=== PATIENT | female | born 1995 | race Caucasian/White ===

== ENCOUNTER 2017-03-01 12:44 | Emergency (ER) | payer MEDICAID ==
[~2017-03-01] VITALS: Ht 154.9 cm; Wt 81.6 kg
[2017-03-01 12:51] VITALS: BP 116/76
[2017-03-01] MEDS ORDERED: ALBUTEROL SULFATE/IPRATROPIU 3 ML SOL IH ONE (13:15)
[2017-03-01] MEDS ORDERED: predniSONE 20 MG TAB PO ONE (13:15)
[2017-03-01] MEDS ORDERED: ALBUTEROL 0.083% 2.5 MG/3 ML NEBU INH ONE (13:15)
--- NOTE | 2017-03-01 13:22 | NUR ---
21/F BIB FAMILY C/O SORE THROAT, RUNNY NOSE & COUGH X 2 DAY. CHEST HURT WHEN SHE COUGH. DENIES N/V/D; SKIN IS PINK/WARM/DRY; AAOX4 WITH EVEN AND STEADY GAIT; LUNGS WHEEZING BL; PATIENT STATES PAIN OF 8/10 AT THIS TIME; PATIENT POSITIONED FOR COMFORT; HOB ELEVATED; BEDRAILS UP X2; BED DOWN. ER MD MADE AWARE OF PT STATUS.
--- NOTE | 2017-03-01 13:26 | NUR ---
RT AT BEDSIDE FOR BREATHING TREATMENT.
--- NOTE | 2017-03-01 14:00 | NUR ---
Patient discharged with v/s stable. Written and verbal after care instructions given and explained. Patient alert, oriented and verbalized understanding of instructions. Ambulatory with steady gait. All questions addressed prior to discharge. ID band removed. Patient advised to follow up with PMD. Rx of VENTOLIN HFA& PREDNISONE given. Patient educated on indication of medication including possible reaction and side effects. Opportunity to ask questions provided and answered.
[2017-03-01 14:05] VITALS: BP 119/78
== END 2017-03-01 14:00 | disposition home or self-care (01) ==
LOC: MED 12:44
DX: J45.909 Unspecified asthma, uncomplicated (principal)
CPT/HCPCS: 94640; 94760; 99283; J7512; J7613; J7620

== ENCOUNTER 2017-03-11 16:39 | Emergency (ER) | payer MEDICAID ==
[~2017-03-11] VITALS: Ht 157.5 cm; Wt 87.2 kg
[2017-03-11 17:38] VITALS: BP 129/76
[2017-03-11] MEDS ORDERED: methylPREDNISolone SS 125 MG in WATER STERILE 2 ML IM ONE (17:40)
[2017-03-11] MEDS ORDERED: ALBUTEROL SULFATE/IPRATROPIU 3 ML SOL IH ONE ×2 (17:40→18:20)
--- NOTE | 2017-03-11 17:40 | NUR ---
PT AMBULATED TO BED 3
[2017-03-11] MEDS ORDERED: NACL 0.9% 1,000 ML IV ONE (17:45)
--- NOTE | 2017-03-11 17:45 | NUR ---
PATIENT PRESENTS TO ED WITH C/O SOB WITH INTERMITTENT COUGH AND CHEST PAIN 8/10 SINCE LAST NIGHT; USED ALBUTEROL INHALER WITH NO RELIEF;HX OF ASTHMA;RX OF ALBUTEROL;DENIES N/V/D; AUDIBLE WHEEZES NOTED;SKIN IS PINK/WARM/DRY; AAOX4 WITH EVEN AND STEADY GAIT; PATIENT STATES PAIN OF 8/10 AT THIS TIME; PATIENT POSITIONED FOR COMFORT; HOB ELEVATED; BEDRAILS UP X2; BED DOWN. ER MD AWARE OF PT STATUS.
--- NOTE | 2017-03-11 17:55 | NUR ---
CALLED HOUSE SUP;PYXIS IS NOT WORKING;NEED I L NS;
--- NOTE | 2017-03-11 17:56 | NUR ---
RT AT BEDSIDE.
--- NOTE | 2017-03-11 18:00 | NUR ---
PER ERMD SOLUMEDROL CAN BE GIVEN IVP;WILL CHANGE ORDER IM TO IVP.
--- NOTE | 2017-03-11 18:01 | NUR ---
PT VERBALIZES RELIEF FROM SOB;NO NASAL FLARING NOTED;WILL CONTINUE TO MONITOR PT.
--- NOTE | 2017-03-11 18:34 | NUR ---
RT AT BEDSIDE.
--- NOTE | 2017-03-11 18:53 | NUR ---
Patient discharged with v/s stable. Written and verbal after care instructions given and explained. Patient alert, oriented and verbalized understanding of instructions. Ambulatory with steady gait. All questions addressed prior to discharge. ID band removed. Patient advised to follow up with PMD. Rx of ATROVENT , PREDNISONE AND ALBUTEROL given. Patient educated on indication of medication including possible reaction and side effects. Opportunity to ask questions provided and answered.
[2017-03-11 18:54] VITALS: BP 110/86
== END 2017-03-11 18:53 | disposition home or self-care (01) ==
LOC: MED 16:39
DX: J45.901 Unspecified asthma with (acute) exacerbation (principal)
CPT/HCPCS: 94640; 96361; 96374; 99284; J2930; J7030; J7620

== ENCOUNTER 2017-03-13 07:53 | Emergency (ER) | payer MEDICAID ==
[~2017-03-13] VITALS: Ht 154.9 cm; Wt 88.6 kg
[2017-03-13 08:04] VITALS: BP 103/57
[2017-03-13] MEDS ORDERED: predniSONE 20 MG TAB PO ONE (08:15)
[2017-03-13] MEDS ORDERED: ALBUTEROL SULFATE/IPRATROPIU 3 ML SOL IH ONE (08:15)
[2017-03-13] MEDS ORDERED: ALBUTEROL 0.083% 2.5 MG/3 ML NEBU INH ONE (08:15)
--- NOTE | 2017-03-13 08:22 | NUR ---
PATIENT BIB BOYFRIEND C/O ASTHMA EXACERBATION X 2 DAYS WITH URINARY BURNING X LAST NIGHT. HX OF ASTHMA;RX OF VENTOLIN INHALER . DENIES N/V/D; SKIN IS PINK/WARM/DRY; AAOX4 WITH EVEN AND STEADY GAIT;PATIENT STATES PAIN OF 8/10 LOWERR ABDOMEN;AT THIS TIME; PATIENT POSITIONED FOR COMFORT; HOB ELEVATED; BEDRAILS UP X2; BED DOWN.ALL MONITORS IN PLACED; ER MD MADE AWARE OF PT STATUS.
--- NOTE | 2017-03-13 09:34 | NUR ---
pt resting on bed;"states i feel much better"will continue to monitor pt.
[2017-03-13] MEDS ORDERED: KETOROLAC 60 MG/2 ML VIAL IM ONE (09:40)
--- NOTE | 2017-03-13 10:21 | NUR ---
Patient discharged with v/s stable. Written and verbal after care instructions given and explained. Patient alert, oriented and verbalized understanding of instructions. Ambulatory with steady gait. All questions addressed prior to discharge. ID band removed. Patient advised to follow up with PMD. Rx of albuterolsulfate,prednisone and cipro given. Patient educated on indication of medication including possible reaction and side effects. Opportunity to ask questions provided and answered.
[2017-03-13 10:22] VITALS: BP 117/67
== END 2017-03-13 10:21 | disposition home or self-care (01) ==
LOC: MED 07:53
DX: J45.901 Unspecified asthma with (acute) exacerbation (principal); N39.0 Urinary tract infection, site not specified
CPT/HCPCS: 81002; 81025; 94640; 96372; 99283; J1885; J7512; J7613; J7620

== ENCOUNTER 2017-03-18 17:51 | Emergency (ER) | payer MEDICAID ==
[~2017-03-18] VITALS: Ht 157.5 cm; Wt 86.3 kg
[2017-03-18 18:08] VITALS: BP 96/59
[2017-03-18] MEDS ORDERED: ALBUTEROL SULFATE/IPRATROPIU 3 ML SOL IH ONE (18:10)
[2017-03-18] MEDS ORDERED: DEXAMETHASONE 10 MG/ML VIAL PO ONE (18:15)
--- NOTE | 2017-03-18 18:31 | NUR ---
RT AT BEDSIDE
--- NOTE | 2017-03-18 18:32 | NUR ---
ADMITTING DX: ADULT-ASTHMA LOC AWAKE AND ALERT SITTING EDUCATION PROVIDED TO PATIENT WITH ACKNOWLEDGEMENT ON HHN THERAPY AND RESPIROATORY DRUG ENCOURAGED PATIENT FOR DEEP BREATHING DURING THERAPY TOLERATED WELL WITHOUT ADVERSE REACTIONS
--- NOTE | 2017-03-18 18:34 | NUR ---
influenza swab collected
--- NOTE | 2017-03-18 18:46 | NUR ---
URINE CUP GIVEN FOR SAMPLE.
[2017-03-18] MEDS ORDERED: KETOROLAC 30 MG/ML VIAL IM ONE (19:15)
--- NOTE | 2017-03-18 19:40 | NUR ---
assumed care,medicated with toradol IM, antony
[2017-03-18 19:50] VITALS: BP 121/75
--- NOTE | 2017-03-18 19:52 | NUR ---
Patient discharged with v/s stable. Written and verbal after care instructions given and explained. Patient alert, oriented and verbalized understanding of instructions. Ambulatory with steady gait. All questions addressed prior to discharge. ID band removed. Patient advised to follow up with PMD. Rx of motrin, prednisone, robitussin, proair, given. Patient educated on indication of medication including possible reaction and side effects. Opportunity to ask questions provided and answered.
== END 2017-03-18 19:52 | disposition home or self-care (01) ==
LOC: MED 17:51
DX: J11.1 Influenza due to unidentified influenza virus with other respiratory manifestations (principal); J45.909 Unspecified asthma, uncomplicated
CPT/HCPCS: 36415; 71045; 81002; 81025; 87804; 94640; 96372; 99285; J1100; J1885; J7620

== ENCOUNTER 2017-08-18 13:09 | Emergency (ER) | payer MEDICAID ==
[~2017-08-18] VITALS: Ht 160 cm; Wt 86.6 kg
[2017-08-18 13:11] VITALS: BP 127/75
[2017-08-18] MEDS ORDERED: ALBUTEROL SULFATE/IPRATROPIU 3 ML SOL IH ONE ×2 (13:15→14:40)
--- NOTE | 2017-08-18 13:17 | NUR ---
Patient ambulated to bed 2 with family. RN evaluating patient at bedside.
--- NOTE | 2017-08-18 13:28 | NUR ---
Dr. Thomas evaluating patient at bedside.
--- NOTE | 2017-08-18 13:36 | NUR ---
22/F presents to ED with complaints of an asthma exacerbation. Pt states it started last night. Patient has hx of asthma with use of inhaler. Wheezing breath sounds noted all over x5 lobes, expiratory wheeze. Pt also c/o dry, non productive cough. O2 sat 98% on room air. AOX4, speaking in full clear sentences. No signs of respiratory distress. VSS.
--- NOTE | 2017-08-18 13:39 | NUR ---
ADMITTING DX: ADULT ASTHMA LOC AWAKE AND ALERT RESPONSIVE TO REBAR WORKER VERBAL COMMANDS HFW POSITION SKIN TONE PINK EDUCATION PROVIDE TO PATIETN WITH ACKNOWLEDGEMENT ON HHN THERAPY AND RESPIRATORY DRUG HHN THERAPY GIVEN ORDERED ENCOURAGED PATIENT FOR INTERMITTENT DEEP BREATHING DURING THERAPY TOLERATED WELL WITHOUT ADVERSE REACTIONS NOTED
--- NOTE | 2017-08-18 13:42 | NUR ---
RT at bedside for breathing treatment.
--- NOTE | 2017-08-18 14:38 | NUR ---
Patient resting comfortably. Wheezing breath sounds noted to bilateral lower bases. Pt offered another breathing treatment and patient agreed. Dr. Thomas made aware and another treatment to be ordered.
--- NOTE | 2017-08-18 14:39 | NUR ---
RT called to bedside for breathing intervention.
--- NOTE | 2017-08-18 14:48 | NUR ---
RT at bedside for breathing treatment.
--- NOTE | 2017-08-18 14:50 | NUR ---
FOLLOW UP HHN THERAPY GIVEN ORDERED
--- NOTE | 2017-08-18 15:15 | NUR ---
Dr. Thomas at bedside for re-evaluation.
--- NOTE | 2017-08-18 15:33 | NUR ---
Pt resting comfortably at this time. Pt awaiting discharge instructions. VSS. All needs met.
[2017-08-18 16:12] VITALS: BP 138/81
--- NOTE | 2017-08-18 16:12 | NUR ---
Patient discharged with v/s stable. Written and verbal after care instructions given and explained. Patient alert, oriented and verbalized understanding of instructions. Ambulatory with steady gait. All questions addressed prior to discharge. ID band removed. Patient advised to follow up with PMD. Rx of Albuterol Sulfate 1.25mg/3ml, Albuterol 90mcg/actuation and Prednisone 20mg given. Patient educated on indication of medication including possible reaction and side effects. Opportunity to ask questions provided and answered.
== END 2017-08-18 16:12 | disposition home or self-care (01) ==
LOC: MED 13:09
DX: J45.901 Unspecified asthma with (acute) exacerbation (principal)
CPT/HCPCS: 71045; 94640; 99284; J7620; Q0092

== ENCOUNTER 2018-08-28 13:20 | Emergency (ER) | payer MEDICAID, OTHER ==
[~2018-08-28] VITALS: Ht 154.9 cm; Wt 88.7 kg
[2018-08-28 13:24] VITALS: BP 130/78
--- NOTE | 2018-08-28 13:30 | NUR ---
Patient ambulated to bed 2. RN evaluating patient at bedside.
--- NOTE | 2018-08-28 13:33 | NUR ---
23 Y FEMALE BIB SELF IN NEED OF MED REFILL. PT RAN OUT OF ALBUTEROL INHALER MEDICATION FOR ASTHMA. ONLY COMPLAINT IS CHEST PAIN WITH NON-PRODUCTIVE COUGH. PAIN 2/10. LUNGS CLEAR BILATERALLY. RR EVEN AND UNLABORED. DENIES DIFFICULTY BREATHING. VSS AT THIS TIME. PT ON ROOM AIR. AA0X4. SITTING IN BED ON PHONE. BED IS DWON, LOCKED, BED RAIL X 1, ERMD TO SEE PT. HX OF ASTHMA
[2018-08-28 14:10] VITALS: BP 132/82
--- NOTE | 2018-08-28 14:10 | NUR ---
Patient discharged with v/s stable. Written and verbal after care instructions given and explained. Patient alert, oriented and verbalized understanding of instructions. Ambulatory with steady gait. All questions addressed prior to discharge. ID band removed. Patient advised to follow up with PMD. Rx of ZYRTEC 10MG, PREDNISONE 20MG AND ALBUTEROL 90MCG/ACUTATION given. Patient educated on indication of medication including possible reaction and side effects. Opportunity to ask questions provided and answered.
== END 2018-08-28 14:10 | disposition home or self-care (01) ==
LOC: MED 13:20
DX: J45.909 Unspecified asthma, uncomplicated (principal); Z76.0 Encounter for issue of repeat prescription
CPT/HCPCS: 99283